=== PATIENT | male | born 1995 | race Caucasian/White ===

== ENCOUNTER 2017-09-30 06:40 | Outpatient (CLI) | payer OTHER ==
[~2017-09-30] VITALS: Ht 175.3 cm; Wt 72.7 kg
[2017-09-30 07:16] VITALS: BP 137/84; PULSE 59; TEMP 97.8
[2017-09-30 10:00] VITALS: BP 143/71; PULSE 80
[2017-09-30 10:30] VITALS: BP 131/95; PULSE 68
== END 2017-09-30 10:40 | disposition home or self-care (01) ==
LOC: COL.CAR 06:40
DX: R55 Syncope and collapse (principal); R03.0 Elevated blood-pressure reading, without diagnosis of hypertension; Z88.1 Allergy status to other antibiotic agents; Z88.0 Allergy status to penicillin; F17.210 Nicotine dependence, cigarettes, uncomplicated; Z82.49 Family history of ischemic heart disease and other diseases of the circulatory system; I07.1 Rheumatic tricuspid insufficiency